=== PATIENT | male | born 1980 | race Two or more races ===

== ENCOUNTER 2016-08-17 12:53 | Emergency (ER) | payer MEDICARE, MEDICAID ==
[2016-08-17 13:45] VITALS: BP 139/96
--- NOTE | 2016-08-17 13:49 | ED Physician Chart ---
Chief Complaint/HPI - Patient Information Date Seen:: 08/17/16 Time Seen:: 13:30 History of Present Illness:: THIS IS A 36 YO MALE WHO IS CONCERNED ABOUT A SMALL AREA OF SWELLING AND RASH ON THE UPPER LIP AREA. THERE IS NO INVOLVEMENT OF THE INSIDE JAW AND MONTH CONNECTION TO THE RASH. THE PATIENT STATES THAT THE AREA IS FROM AN INSECT BITE SUSTAINED LAST NIGHT. THE PATIENT DENIES FEVER, COUGH AND CHILLS. THE PATIENT DENIES ANY OTHER PART OF THE BODY INVOLVEMENT. Allergies:: Allergies Allergy/AdvReac Type Severity Reaction Status Date / Time Penicillins [PCN] AdvReac Verified 08/17/16 13:19 Vitals:: Vital Signs - 8 hr 08/17/16 08/17/16 13:19 13:22 Temp 97.1 F HR 94 RR 17 BP 139/96 139/96 O2 Sat % 98 Historian:: Patient Review:: Nurse's Note Reviewed Review of Systems - Review of Systems General/Constitutional: No fever, No chills, No weight loss, No weakness, No diaphoresis, No edema, No loss of appetite, Other (OBESE) Skin: No skin lesions, No rash, No bruising, Other (INSECT BITE RIGHT PEROBICULARUS AREA.) Head: No headache, No light-headedness Eyes: No loss of vision, No pain, No diplopia ENT: No earache, No nasal drainage, No sore throat, No tinnitus Neck: No neck pain, No swelling, No thyromegaly, No stiffness, No mass noted Cardio Vascular: No chest pain, No palpitations, No PND, No orthopnea, No edema Pulmonary: No SOB, No cough, No sputum, No wheezing GI: No nausea, No vomiting, No diarrhea, No pain, No melena, No hematochezia, No constipation, No hematemesis G/U: No dysuria, No frequency, No hematuria Musculoskeletal: No bone or joint pain, No back pain, No muscle pain Endocrine: No polyuria, No polydipsia Psychiatric: No prior psych history, No depression, No anxiety, No suicidal ideation Hematopoietic: No bruising, No lymphadenopathy Allergic/Immuno: No urticaria, No angioedema Neurological: No syncope, No focal symptoms, No weakness, No paresthesia, No headache, No seizure, No dizziness, No confusion, No vertigo Past Medical History - Past Medical History Obtainable: Yes Past Medical History: Other (CHRONIC BACK PAIN) Family History: None Social History: Non Smoker, No Alcohol, No Drug Use, Single Surgical History: None Psychiatricy History: None Medication: Reviewed Family Medical History - Family Member Mother History Unknown: Yes Hx Family Cancer: No Hx Family Coronary Artery Disease: No Hx Family Congestive Heart Failure: No Hx Family Hypertension: No Hx Family Stroke: No Hx Family Diabetes: No Hx Family Seizures: No Hx Family Dementia: No Hx Family COPD: No Hx Family Hepatitis: No Physical Exam - Physical Examination General/Constitutional: Awake, Well-developed, well-nourished, Alert, No distress, GCS 15, Non-toxic appearing, Ambulatory Head: Atraumatic Eyes: Lids, conjuctiva normal, PERRL, EOMI Skin: Nl inspection, No rash, No skin lesions, No ecchymosis, Well hydrated, No lymphadenopathy ENMT: External ears, nose nl, Nasal exam nl, Lips, teeth, gums nl Neck: Nontender, Full ROM w/o pain, No JVD, No nuchal rigidity, No bruit, No mass, No stridor Respiratory: Nl effort/Exclusion, Clear to Auscultation, No Wheeze/Rhonchi/Rales Cardio Vascular: RRR, No murmur, gallop, rubs, NL S1 S2 GI: No tenderness/rebounding/guarding, No organomegaly, No hernia, Normal BS's, Nondistended, No mass/bruits, No McBurney tenderness : No CVA tenderness Extremities: No tenderness or effusion, Full ROM, normal strength in all extremities, No edema, Normal digits & nails Other Extremities comments:: MULTIPLE ABRASIONS OF THE LOWER EXTREMITIES AND A DEEP OLD TEAR WOUND ON THE RIGHT ELBOW. THE WOUND IS OLD NOT BLEEDING WHEN DEEP CLEANING WITH H2O2. RANGE OF MOTION OF THE ELBOW IS NORMAL. Neuro/Psych: Alert/oriented, DTR's symmetric, Normal sensory exam, Normal motor strength, Judgement/insight normal, Mood normal, Normal gait, No focal deficits Misc: normal gait, Normal back, No paraspinal tenderness ED Septic Shock - . Is Septic Shock (SBP<90, OR Lactate>4 mmol\L) present?: No - <6hrs of presentation: Vital Signs: Vital Signs - 8 hr 08/17/16 08/17/16 13:19 13:22 Temp 97.1 F HR 94 RR 17 BP 139/96 139/96 O2 Sat % 98 Reassessment (Disposition) - Diagnosis Diagnosis:: INFECTED INSECT BITE - Aftercare/Follow up Instructions Aftercare/Follow-Up Instructions:: Counseled pt regarding lab results/diagnosis & need follow up, Refer to Discharge Instructions, Counseled pt & family regarding lab results/diagnosis & need follow up - Patient Disposition Discharge/Transfer:: Home ED Discharge Plan - Patient Disposition Admit/Discharge/Transfer: PT DISCHARGED HOME Condition at Disposition: Stable Instructions: Insect Bite
== END 2016-08-17 13:40 | disposition home or self-care (01) ==
LOC: ER 12:53
DX: S80.862A Insect bite (nonvenomous), left lower leg, initial encounter (principal); S80.861A Insect bite (nonvenomous), right lower leg, initial encounter; S50.361A Insect bite (nonvenomous) of right elbow, initial encounter; Z88.0 Allergy status to penicillin; W57.XXXA Bitten or stung by nonvenomous insect and other nonvenomous arthropods, initial encounter; Y93.89 Activity, other specified; Y92.89 Other specified places as the place of occurrence of the external cause; Y99.8 Other external cause status

== ENCOUNTER 2016-10-11 17:00 | Emergency (ER) | payer MEDICARE, MEDICAID ==
--- NOTE | 2016-10-11 18:07 | ED Physician Chart ---
Chief Complaint/HPI - Patient Information Date Seen:: 10/11/16 Time Seen:: 19:50 Chief Complaint:: skin rash History of Present Illness:: Patient has had a rash adjacent to the right and left edges of his mouth 2 days. Allergies:: Allergies Allergy/AdvReac Type Severity Reaction Status Date / Time penicillinase Allergy Verified 10/11/16 17:53 Penicillins [PCN] AdvReac Verified 10/11/16 17:53 Vitals:: Vital Signs - 8 hr 10/11/16 17:47 Temp 98.7 F HR 97 RR 16 BP 144/98 O2 Sat % 98 Historian:: Patient Review:: Nurse's Note Reviewed Review of Systems - Review of Systems General/Constitutional: No fever, No chills Skin: Rash Head: No headache Eyes: No loss of vision, Pain ENT: No earache Neck: No neck pain, No swelling Cardio Vascular: No chest pain, No palpitations Pulmonary: No SOB GI: No nausea, No vomiting Musculoskeletal: No bone or joint pain, No back pain, No muscle pain Hematopoietic: Bruising Allergic/Immuno: No urticaria Neurological: No syncope, No focal symptoms Past Medical History - Past Medical History Past Medical History: DM, Other (patient previously weighed 500 pounds; after a discectomy at L4L5 he had a pulmonary embolus) Family History: Diabetes Melitus Social History: No Alcohol Surgical History: other (see above) Family Medical History - Family Member Mother History Unknown: Yes Hx Family Cancer: No Hx Family Coronary Artery Disease: No Hx Family Congestive Heart Failure: No Hx Family Hypertension: No Hx Family Stroke: No Hx Family Diabetes: No Hx Family Seizures: No Hx Family Dementia: No Hx Family COPD: No Hx Family Hepatitis: No Father Hx Family Cancer: Yes Hx Family Diabetes: Yes Physical Exam - Physical Examination General/Constitutional: Well-developed, well-nourished, Alert, No distress Head: Atraumatic Eyes: Lids, conjuctiva normal, PERRL Other Skin comments:: redness and crusting of the skin 2 cm in daimeter adjacent to the left corner of the mouth and 1 cm in diameter adjacent to the right coronary the mouth Assessment - Assessment General Assessment: Patient has a goatee and has been shaving the area of the rash. I suggested that the infection was most likely secondary to shaving. Patient requested a prescription for both topical antibiotic and oral antibiotics. ED Septic Shock - . Is Septic Shock (SBP<90, OR Lactate>4 mmol\L) present?: No - <6hrs of presentation: Vital Signs: Vital Signs - 8 hr 10/11/16 17:47 Temp 98.7 F HR 97 RR 16 BP 144/98 O2 Sat % 98 Reassessment (Disposition) - Reassessment Reassessment Condition:: Unchanged - Diagnosis Diagnosis:: Facial cellulitis - Aftercare/Follow up Instructions Aftercare/Follow-Up Instructions:: Refer to Discharge Instructions Medication Prescribed:: Mupirocin 2% Sig apply TID for 10 days; Bactrim DS No. 14 take one twice a day - Patient Disposition Discharge/Transfer:: Home Condition at Disposition:: Stable, Unchanged
== END 2016-10-11 18:40 | disposition home or self-care (01) ==
LOC: ER 17:00
DX: L03.211 Cellulitis of face (principal); Z88.0 Allergy status to penicillin; E11.9 Type 2 diabetes mellitus without complications
CPT/HCPCS: Z7502